=== PATIENT | male | born 1960 | race Caucasian/White ===

== ENCOUNTER 2022-01-25 20:08 | Inpatient (IN) | payer OTHER ==
[~2022-01-25] VITALS: Ht 180.3 cm; Wt 119.2 kg
[2022-01-25 20:26] LABS: BASOPHILS ABSOLUTE AUTO 0.09 K/mm3 (0.00-0.23); BASOPHILS PERCENT AUTO 1 % (0-2); EOSINOPHILS PERCENT AUTO 1 % (0-6); Hematocrit 48.2 % (37.0-53.0); Hemoglobin 15.9 g/dL (13.5-17.5); IMMATURE GRAN ABSOLUTE AUTO 0.08 K/mm3 (0.00-0.10); IMMATURE GRAN PERCENT AUTO 1 % (0-1); LYMPHOCYTES ABSOLUTE AUTO 1.84 K/mm3 (0.84-5.20); LYMPHOCYTES PERCENT AUTO 12 % (21-46); MONOCYTES ABSOLUTE AUTO 0.97 K/mm3 (0.16-1.47); MONOCYTES PERCENT AUTO 6 % (4-13); Mean Corpuscular HGB 29.7 pg (26.0-34.0); Mean Corpuscular Volume 90 fL (80-100); Mean Platelet Volume 9.9 fL (9.1-12.4); NEUTROPHILS ABSOLUTE AUTO 11.96 K/mm3 (1.96-9.15); NEUTROPHILS PERCENT AUTO 79 % (41-73); Platelet Count 227 K/mm3 (150-400); RDW Coefficient Variation 13.6 % (11.7-14.2); RDW Standard Deviation 45.2 fL (35.1-46.3); Red Blood Cell Count 5.35 M/mm3 (4.30-5.90); White Blood Cell Count 15.14 K/mm3 (4.00-11.30)
[2022-01-25 20:41] LABS: Base Excess Venous -1.6 mmol/L; Bicarbonate Venous 20.9 mmol/L (24.0-30.0); PCO2 Venous 70.3 mmHg (38-42); pH Blood Venous 7.19 (7.34-7.37)
[2022-01-25 20:48] LABS: Alanine Aminotransfer (ALT/SGP 40 U/L (12-78); Albumin, Blood 3.7 g/dL (3.4-5.0); Albumin/Globulin Ratio 0.8 (0.8-1.8); Alk Phos 116 U/L (50-136); Anion Gap 11 mmol/L (6-16); Aspartate Aminotrans (AST/SGOT 26 U/L (12-37); Bilirubin, Total 0.3 mg/dL (0.1-1.0); Blood Urea Nitrogen 25 mg/dL (8-24); Bun/Creatinine Ratio 25.3 (12.0-20.0); CO2, Blood 24 mmol/L (21-32); Calcium, Blood 9.2 mg/dL (8.5-10.1); Chloride, Blood 106 mmol/L (98-108); Creatinine, Blood 0.99 mg/dL (0.60-1.20); Ethanol (Alcohol), Blood, Med <3 mg/dL; Globulin, Blood 4.5 g/dL (2.2-4.0); Glomerular Filtration Rate 86 (60-); Glucose, Blood 129 mg/dL (70-99); Sodium, Blood 141 mmol/L (136-145); Total Protein, Blood 8.2 g/dL (6.4-8.2)
[2022-01-25 23:13] LABS: Base Excess Venous -0.6 mmol/L; PCO2 Venous 74.1 mmHg (38-42); pH Blood Venous 7.18 (7.34-7.37)
[2022-01-26 00:22] LABS: International Normalized Ratio 0.97; Prothrombin Time Results 10.2 Sec (9.7-11.5)
[2022-01-26 00:25] LABS: PCO2 Arterial 65.7 mmHg (35-45); PO2 Arterial 89.1 mmHg (80-100)
[2022-01-26 00:58] LABS: Source, Urine Foley catheter
[2022-01-26 01:03] LABS: Blood, Urine 4+ (Neg); Glucose Qualitative, Urine Neg (Neg); Ketones, Urine Neg (Neg); Leukocyte Esterase, Urine Neg (Neg); Nitrite, Urine Neg (Neg); Protein, Urine 1+ (Neg); Specific Gravity, Urine 1.025 (1.003-1.022); Urobilinogen, Urine NORM (Normal)
[2022-01-26 01:07] LABS: Bilirubin, Urine 2+ (Neg)
[2022-01-26 01:18] LABS: Appearance, Urine Clear (Clear); Color, Urine Yellow (P-Yellow); Hyaline Casts 0-2 /lpf (0-2); White Blood Cells, Urine 0-2 /hpf (0-5)
[2022-01-26 01:19] LABS: Bacteria Rare /hpf; Squamous Epithelial Cells Not Seen /hpf (Few)
[2022-01-26 01:22] LABS: U Amphetamine Screen Not Detected; U Barbituate Screen Not Detected; U Benzodiazapine Screen Not Detected; U Buprenorphine Screen DETECTED; U Cannabinoids Screen DETECTED; U Cocaine Screen Not Detected; U Methadone Screen Not Detected; U Methamphetamine Screen Not Detected; U Opiates Screen Not Detected; U Oxycodone Screen Not Detected; U Phencyclidine Screen Not Detected; U Propoxyphene Screen Not Detected
[2022-01-26 02:25] LABS: PCO2 Arterial 60.3 mmHg (35-45); PO2 Arterial 86.2 mmHg (80-100); pH Blood Arterial 7.24 (7.35-7.45)
[2022-01-26 04:34] LABS: BASOPHILS ABSOLUTE AUTO 0.04 K/mm3 (0.00-0.23); BASOPHILS PERCENT AUTO 0 % (0-2); EOSINOPHILS ABSOLUTE AUTO 0.12 K/mm3 (0.00-0.68); EOSINOPHILS PERCENT AUTO 1 % (0-6); Hematocrit 46.2 % (37.0-53.0); Hemoglobin 14.7 g/dL (13.5-17.5); IMMATURE GRAN ABSOLUTE AUTO 0.04 K/mm3 (0.00-0.10); IMMATURE GRAN PERCENT AUTO 0 % (0-1); LYMPHOCYTES ABSOLUTE AUTO 2.14 K/mm3 (0.84-5.20); LYMPHOCYTES PERCENT AUTO 17 % (21-46); MONOCYTES ABSOLUTE AUTO 0.83 K/mm3 (0.16-1.47); MONOCYTES PERCENT AUTO 6 % (4-13); Mean Corpuscular HGB 29.8 pg (26.0-34.0); Mean Corpuscular HGB Conc 31.8 g/dL (31.5-36.5); Mean Corpuscular Volume 94 fL (80-100); Mean Platelet Volume 10.3 fL (9.1-12.4); NEUTROPHILS ABSOLUTE AUTO 9.83 K/mm3 (1.96-9.15); NEUTROPHILS PERCENT AUTO 76 % (41-73); Platelet Count 213 K/mm3 (150-400); RDW Coefficient Variation 13.9 % (11.7-14.2); RDW Standard Deviation 47.7 fL (35.1-46.3); Red Blood Cell Count 4.94 M/mm3 (4.30-5.90)
[2022-01-26 05:01] LABS: Bun/Creatinine Ratio 24.5 (12.0-20.0); Calcium, Blood 8.7 mg/dL (8.5-10.1); Creatinine, Blood 1.02 mg/dL (0.60-1.20); Potassium, Blood 4.2 mmol/L (3.5-5.5)
[2022-01-26 05:15] LABS: PCO2 Arterial 60.5 mmHg (35-45); PO2 Arterial 71.8 mmHg (80-100); pH Blood Arterial 7.26 (7.35-7.45)
--- NOTE | 2022-01-26 05:35 | NUR ---
ADMIT NOTE PT ARRIVED TO PCU FROM ED VIA ED STRETCHER W/ RT DURING XFER AT APPROX MIDNIGHT. PT WAS SLID BY 5 STAFF FROM ED STRETCHER TO PCU BED. PT OBTUNDED, DOES NOT RESPOND TO VERBAL COMMANDS. MOANS, MOVES W/ PAIN (WINTERS INSERTION). SP02>90% ON BIPAP, 17/06, 25% FI02. RR 6-7, IRREGULAR W/ BIPAP MACHINE. TELE SHOWS NSR, HR MOSTLY 70'S. PT HAD NOT URINATED PER ER REPORT. CALL PLACED TO MD MCALLISTER. MD MCALLISTER W/ ORDERS FOR WINTERS. WINTERS PLACED AND DRAINED 800 MLS. URINE SENT TO LAB. PT ARRIVED TO PCU W/ 22G IN L HAND. TAYLOR POWERGLIDE PLACED BY PHARMACY OPERATIONS COORDINATOR. RT IN ROOM, MD MCALLISTER AND MD CAMPBELL IN ROOM TO ASSESS PT D/T AMS AND LOW RESPIRATIONS. ABG DONE X3 THIS SHIFT SHOWING SLIGHT IMPROVEMENT ON PH, WORSENING ABG 02. MD CAMPBELL W/ ORDERS TO REPEAT ABG IN 4 HRS (930 AM). CIWAS NEGATIVE. SEIZURE PRECAUTIONS IN PLACE. FLUIDS INFUSING PER EMAR. CALL LIGHT IN REACH.
[2022-01-26] MEDS ORDERED: TOPI100 PO (14:16)
--- NOTE | 2022-01-26 17:02 | NUR ---
SHIFT SUMMARY MENTATION HAS IMPROVED THIS AFTERNOON. PT MUCH MORE ALERT AND ANSWERING QUESTION APPROPRIATELY. BP STABLE. HR REMAINS NSR. PT BEEN ON BIPAP MOST OF SHIFT FIO2 25%. THIS EVENING PT ABLE TO TOLERATE A BREAK AND PLACED ON 3L NC. PT COUGHING UP THICK DARK BROWN SPUTUM. PT SHOWN HOW TO USE SUCTION YOUNKER. FREQUENT ORAL CARE PROVIDED. PT ABLE TO REPOSITION HIMSELF IN BED. WINTERS PATENT AND DRAINING CLEAR YELLOW URINE. PT COMPLAINED OF ODONNELL THIS SHIFT BUT DENIED A NEED FOR MEDICATION. CIWA OF 5 THIS EVENING. PT ABLE TO TOLERATE PO INTAKE. WILL CONTINUE TO MONITOR AND REPORT TO ONCOMING SILKE
[2022-01-26] MEDS ORDERED: TRAZ100 PO (21:58)
[2022-01-26] MEDS ORDERED: GABA400 PO (21:58)
[2022-01-26] MEDS ORDERED: ATOR40TA PO (21:59)
[2022-01-26] MEDS ORDERED: Hydroxyzine HCl50 MG (21:59)
[2022-01-26] MEDS ORDERED: FAMO40 PO (22:00)
[2022-01-26] MEDS ORDERED: Prozac40 MG PO (22:00)
[2022-01-26] MEDS ORDERED: AMLO5 PO (22:00)
[2022-01-26] MEDS ORDERED: OLAN10 PO (22:01)
[2022-01-26] MEDS ORDERED: HYDCHL50 PO (22:02)
[2022-01-26] MEDS ORDERED: ETOD400 PO (22:02)
[2022-01-26] MEDS ORDERED: ERGO400 PO (22:03)
[2022-01-26] MEDS ORDERED: VITAMIN D310 MC4 PO (22:03)
[2022-01-27 04:29] LABS: Hematocrit 41.4 % (37.0-53.0); Hemoglobin 13.3 g/dL (13.5-17.5); Mean Corpuscular HGB 29.8 pg (26.0-34.0); Mean Corpuscular HGB Conc 32.1 g/dL (31.5-36.5); Mean Corpuscular Volume 93 fL (80-100); Platelet Count 187 K/mm3 (150-400); RDW Coefficient Variation 13.7 % (11.7-14.2); Red Blood Cell Count 4.47 M/mm3 (4.30-5.90); White Blood Cell Count 11.24 K/mm3 (4.00-11.30)
[2022-01-27 04:44] LABS: Bun/Creatinine Ratio 24.5 (12.0-20.0); Calcium, Blood 8.5 mg/dL (8.5-10.1); Creatinine, Blood 0.9 mg/dL (0.60-1.20); Potassium, Blood 3.8 mmol/L (3.5-5.5)
--- NOTE | 2022-01-27 05:56 | NUR ---
SHIFT SUMMARY NO ACUTE CHANGES DURING NOC. SLEPT WITH BIPAP , FIO2 25%. PT IS ON 2L NC WHEN AWAKE. FREQUENT COUGH PRODUCTIVE OF THICK TANNISH-BROWN SPUTUM. DENIES SOB OR DYSPNEA. MEDICATED WITH TYLENOL 650MG PO X 2 DOSES FOR C/O HEADACHE AND LIBRIUM 50MG PO X 2 DOSES FOR CIWA 7-9. VSS T/O NOC. WINTERS PATENT AND DRAINING TO GRAVITY. TOLERATING PO DIET. PT IS ABLE TO REPOSITION SELF IN BED. WILL REPORT TO ONCOMING RN WHEN AVAILABLE.
--- NOTE | 2022-01-27 09:23 | NUR ---
Room assignment 356 was given; left message for the RN Marta to call for report when available.
--- NOTE | 2022-01-27 09:24 | NUR ---
The pt was c/o feeling difficulty catching his breath when he is coughing. He demonstrated to me how he feels like it is hard for him to move the air when he coughs. He does have some wheezing noted in the right lower lobe, and crackles in bases bilaterally. Provided the pt with an incentive spirometer, flutter valve and gave instructions on their use. The pt demonstrated correct and consistent use of these tools this morning, and he is expectorating plegm and using the yankaur to get it out of his mouth. He expressed thanks for the tools. Encouraged the pt to get up and move around the room, sitting in chair, walking to the bathroom as tolerated, etc. Kilgore catheter was removed this morning. pt states that he had a [facility] and since then he has had "erectile dysfunction". The pt was also weaned off of his oxygen this morning. SpO2 92% on Room air while at rest presently.
--- NOTE | 2022-01-27 10:04 | NUR ---
Telephone report given to SILKE Lozano.
--- NOTE | 2022-01-27 12:58 | NUR ---
TRANSFER NOTE PT WAS TANSFERRED TO THE FLOOR [facility]5. REPORT GOTTENE FROM [facility]. SECTION SET UP UPON [T REQUEST. VS STABLE. BED IN LOWEST POSITION AND CALL LIGHT IN REACH
--- NOTE | 2022-01-27 17:07 | NUR ---
SHIFT SUMMARY PT WAS BROUGHT TO THE FLOOR TODAY FROM . HIS WAS IN TODAY AND SHE TOOK THE PT OUTSIDE AND TO [facility]IGN TOLD BY 4 SEPARATE STAFF THAT THIS WAS NOT ALLOWED. SHE AND THE PT ALSO SEEM TO BE VERY LOUD AND SHOUT AT EACH OTHER. SPOKE WITH THE AND INFORMED HIM OF HIS PROGRESS. NO ACUTE CHANGES. BED IN LOWEST POSITION AND CALLL LIGHT WITHIN REACH
--- NOTE | 2022-01-28 03:51 | NUR ---
DIRECTOR OF PRIMARY CARE SUMMARY VOICED SOME DISCOMFORT AT HS AND WANTED PAIN MED. RECEIVED TYLENOL, BUT VOICED HE WANTED SOMETHING SRONGER. MD WAS NOTIFIED, MD SAID HE WOULD NEED TO DISCUSS THIS WITH AM MD. PT NOTIFIED AND AGREED. PLACED ON BIPAP PER RT. NOTE BRADYCARDIA - IN 40'S AT TIMES. O2 SATS REMAIN IN THE 90'S. CIWA AT HS 2. NO NOTED S/S WITHDRAWLS. SUCTIONS SELF. VOIDED QS (WINTERS WAS REMOVED PRVIOUS SHIFT). CALL LIGHT IN REACH. HAS BEEN RESTING WITHOUT NOTED DISTRESS. WILL CONTINUE TO MONITOR
[2022-01-28] MEDS ORDERED: ALBU2.5V5 INH (12:42)
[2022-01-28] MEDS ORDERED: PRED20 PO (12:48)
[2022-01-28] MEDS ORDERED: STIOLTO RESPIMAT4 G1 INH (12:50)
--- NOTE | 2022-01-28 13:35 | NUR ---
DISCHARGE PT DISCHARGED WITH AT 1340 BY WHEELCHAIR. ALL DISCHARGE PAPERWORK GONE OVER. POWERGLIDE REMOVED AND ALL MEDS DISCUSSED.
== END 2022-01-28 13:39 | disposition home or self-care (01) | DRG 91 ==
LOC: ER 20:08 → PCU 01-26 00:07 → MEDS 01-27 10:19
PROVIDERS: Emergency Medicine; Family Medicine; Internal Medicine; ADMIT Internal Medicine
PROC: 5A09357 Assistance with Respiratory Ventilation, Less than 24 Consecutive Hours, Continuous Positive Airway Pressure (ICD-10-PCS; principal; 2022-01-26)
PROC: HZ2ZZZZ Detoxification Services for Substance Abuse Treatment (ICD-10-PCS; 2022-01-26)
DX: G92.8 Other toxic encephalopathy (principal); J96.01 Acute respiratory failure with hypoxia; J96.02 Acute respiratory failure with hypercapnia; K92.0 Hematemesis; Z68.41 Body mass index [BMI] 40.0-44.9, adult; J44.1 Chronic obstructive pulmonary disease with (acute) exacerbation; E87.2 Acidosis; R04.0 Epistaxis; F10.10 Alcohol abuse, uncomplicated; E66.9 Obesity, unspecified; F12.10 Cannabis abuse, uncomplicated; Z88.0 Allergy status to penicillin; Z71.41 Alcohol abuse counseling and surveillance of alcoholic
CPT/HCPCS: 36415; 36600; 51703; 71045; 74150; 80048; 80053; 81001; 82140; 82803; 82947; 83605; 83735; 84145; 85025; 85027; 85610; 87040; 94640; 94644; 94660; 94664; 94760; 94762; 96374; 99285-25; A9270; C1751; C9113; G0480; J2405; J2930; J3411; J7030

== ENCOUNTER 2024-04-17 17:36 | Inpatient (IN) | payer OTHER ==
[~2024-04-17] VITALS: Ht 180.3 cm; Wt 140.6 kg
[~2024-04-17 17:36] MED LIST: ALBU2.5V5 INH; AMLO5 PO; ATOR40TA PO; ERGO400 PO; ETOD400 PO; FAMO40 PO; GABA400 PO; HYDCHL50 PO; Hydroxyzine HCl50 MG; OLAN10 PO; PRED20 PO; Prozac40 MG PO; STIOLTO RESPIMAT4 G1 INH; TOPI100 PO; TRAZ100 PO; VITAMIN D310 MC4 PO
[2024-04-17 18:02] LABS: BASOPHILS ABSOLUTE AUTO 0.07 K/mm3 (0.00-0.23); BASOPHILS PERCENT AUTO 1 % (0-2); EOSINOPHILS ABSOLUTE AUTO 0.38 K/mm3 (0.00-0.68); EOSINOPHILS PERCENT AUTO 4 % (0-6); Hematocrit 39.8 % (37.0-53.0); Hemoglobin 12.8 g/dL (13.5-17.5); IMMATURE GRAN ABSOLUTE AUTO 0.03 K/mm3 (0.00-0.10); IMMATURE GRAN PERCENT AUTO 0 % (0-1); LYMPHOCYTES ABSOLUTE AUTO 2.16 K/mm3 (0.84-5.20); LYMPHOCYTES PERCENT AUTO 24 % (21-46); MONOCYTES ABSOLUTE AUTO 0.54 K/mm3 (0.16-1.47); MONOCYTES PERCENT AUTO 6 % (4-13); Mean Corpuscular HGB 29.4 pg (26.0-34.0); Mean Corpuscular HGB Conc 32.2 g/dL (31.5-36.5); Mean Corpuscular Volume 92 fL (80-100); Mean Platelet Volume 9.7 fL (9.1-12.4); NEUTROPHILS ABSOLUTE AUTO 6.03 K/mm3 (1.96-9.15); NEUTROPHILS PERCENT AUTO 65 % (41-73); Platelet Count 256 K/mm3 (150-400); RDW Coefficient Variation 14.2 % (11.7-14.2); RDW Standard Deviation 47.9 fL (35.1-46.3); Red Blood Cell Count 4.35 M/mm3 (4.30-5.90); White Blood Cell Count 9.21 K/mm3 (4.00-11.30)
[2024-04-17 18:28] LABS: Albumin, Blood 3.1 g/dL (3.4-5.0); Albumin/Globulin Ratio 0.6 (0.8-1.8); Bilirubin, Total 0.3 mg/dL (0.1-1.0); Bun/Creatinine Ratio 17.4 (12.0-20.0); Calcium, Blood 9.4 mg/dL (8.5-10.1); Creatinine, Blood 1.49 mg/dL (0.60-1.20); Potassium, Blood 3.1 mmol/L (3.5-5.5); Total Protein, Blood 8.1 g/dL (6.4-8.2)
[2024-04-17] MEDS ORDERED: HYDROcodone 10-APAP 325 TAB PO ONE (19:35)
[2024-04-17 19:39] LABS: C-REACTIVE PROTEIN, EXT RANGE 5.35 mg/dL (0.000-0.300); Magnesium, Blood 2.1 mg/dL (1.6-2.4)
[2024-04-17] MEDS ORDERED: Vancomycin HCL 1,500 MG in NS 250 ML IV ONE (20:15)
[2024-04-17] MEDS ORDERED: Ondansetron HCl 2 MG / ML 2ML Vial IV PRN (21:25)
[2024-04-17] MEDS ORDERED: Albuterol 2.5 MG/3 ML VIAL INH PRN (21:30)
[2024-04-17] MEDS ORDERED: HydrALAZINE HCl 20 MG / ML 1ML Vial IV PRN (21:30)
[2024-04-17] MEDS ORDERED: Ipratropium/Albuterol SulF 2.5-0.5MG/3 ML Amp INH SCH (21:30)
[2024-04-17] MEDS ORDERED: Furosemide 10 MG/ML 4ML Vial IV SCH (22:00)
[2024-04-17] MEDS ORDERED: Potassium Chloride 20 MEQ TabCR PO ONE (22:00)
[2024-04-17] MEDS ORDERED: CeFAZolin Sodium 2,000 MG in NS 100 ML IV SCH (22:00)
[2024-04-17 22:30] VITALS: BP 169/93
[2024-04-17 22:37] LABS: U Amphetamine Screen DETECTED; U Barbituate Screen Not Detected; U Benzodiazapine Screen Not Detected; U Buprenorphine Screen Not Detected; U Cannabinoids Screen DETECTED; U Cocaine Screen Not Detected; U Methadone Screen Not Detected; U Methamphetamine Screen DETECTED; U Opiates Screen DETECTED; U Oxycodone Screen Not Detected; U Phencyclidine Screen Not Detected
[2024-04-17] MEDS ORDERED: NS 250 ML IV PRN (22:50)
[2024-04-17] MEDS ORDERED: HYDROcodone 5-APAP 325 TAB PO PRN (23:50)
[2024-04-18] MEDS ORDERED: OLANZapine ODT 10 MG Tab MM SCH ×2 (00:05→21:00)
--- NOTE | 2024-04-18 00:14 | NUR ---
PATIENT IS A NEW ADMIT FROM THE ED. AXOX 4 AND ONE ASSIST FROM GURNEY TO BED. IV ABX INFUSING FROM THE ED. ON ROOM AIR. DENIES CHEST PAIN, SOB, AND N/V. REPORTED LEFT RIB PAIN FROM HOME FALL. BLE CELLULITIS WITH CONSENT TO PHOTOGRAPH SIGNED, PICTURES TAKEN AND IN CHART. BLE CELLULITIS BORDERS MARKED IN THE ED. FOOD PROVIDE PER DIET ORDER. HOSPITALIST DONAVON CONNELL STARTED ZYPREXA 10 MG HOME DOSE NOW AND ADDED NORCO 5/325 MG Q4 PRN FOR PAIN MANAGEMENT. ORIENTED TO ROOM AND CALL LIGHT SYSTEM. PATIENT AWAKE AND RESTING AT THIS TIME. WCTM.
--- NOTE | 2024-04-18 04:18 | NUR ---
SHIFT SUMMARY PATIENT HAD NO ACUTE CHANGES. AXOX 4 AND SBA TO BR. USES URINAL INDEPENDENTLY. PIV INTACT. IV ABX INFUSED. DENIES CHEST PAIN, SOB, AND N/V. CELLULITIS BLE. METH, OPIATES, AND CANNIBUS +. REPORTS DRINKS SIX BEERS DAILY. LIVES WITH SPOUSE AND NOW SPOUSE DAUGHTER AND TWO CHILDREN MOVED IN PLUS HER . CEDS REFUSED NICOTINE PATCH. SLEPT MOST OF THE SHIFT. CALL LIGHT IN REACH. BED IN LOWEST POSITION. WILL CONTINUE TO MONITOR UNTIL DAY SHIFT NURSE ASSUMES CARE.
[2024-04-18 04:36] VITALS: BP 151/84
[2024-04-18 05:43] LABS: BASOPHILS ABSOLUTE AUTO 0.03 K/mm3 (0.00-0.23); BASOPHILS PERCENT AUTO 0 % (0-2); EOSINOPHILS ABSOLUTE AUTO 0.34 K/mm3 (0.00-0.68); EOSINOPHILS PERCENT AUTO 4 % (0-6); Hematocrit 37.9 % (37.0-53.0); Hemoglobin 12.3 g/dL (13.5-17.5); IMMATURE GRAN ABSOLUTE AUTO 0.02 K/mm3 (0.00-0.10); IMMATURE GRAN PERCENT AUTO 0 % (0-1); LYMPHOCYTES ABSOLUTE AUTO 1.46 K/mm3 (0.84-5.20); LYMPHOCYTES PERCENT AUTO 18 % (21-46); MONOCYTES PERCENT AUTO 7 % (4-13); Mean Corpuscular HGB 29.3 pg (26.0-34.0); Mean Corpuscular HGB Conc 32.5 g/dL (31.5-36.5); Mean Corpuscular Volume 90 fL (80-100); Mean Platelet Volume 9.8 fL (9.1-12.4); NEUTROPHILS ABSOLUTE AUTO 5.68 K/mm3 (1.96-9.15); NEUTROPHILS PERCENT AUTO 70 % (41-73); Platelet Count 262 K/mm3 (150-400); RDW Coefficient Variation 14.3 % (11.7-14.2); White Blood Cell Count 8.13 K/mm3 (4.00-11.30)
[2024-04-18 06:08] LABS: Bun/Creatinine Ratio 20.8 (12.0-20.0); Calcium, Blood 9.2 mg/dL (8.5-10.1); Creatinine, Blood 1.49 mg/dL (0.60-1.20); Magnesium, Blood 2.1 mg/dL (1.6-2.4); Potassium, Blood 3.3 mmol/L (3.5-5.5)
[2024-04-18] MEDS ORDERED: Potassium Chloride 10 Meq Tablet SA PO ONE (07:10)
[2024-04-18] MEDS ORDERED: PredniSONE 20 MG Tab PO SCH (07:35)
[2024-04-18 07:42] VITALS: BP 147/81
[2024-04-18] MEDS ORDERED: Gabapentin 400 MG Cap PO SCH (09:00)
[2024-04-18] MEDS ORDERED: Vancomycin HCL 1,250 MG in NS 250 ML IV SCH (09:00)
[2024-04-18] MEDS ORDERED: Topiramate 100 MG Tab PO SCH (09:00)
[2024-04-18] MEDS ORDERED: Thiamine HCl 100 MG Tab PO SCH (09:00)
[2024-04-18] MEDS ORDERED: Famotidine 20 MG Tab PO SCH (09:00)
[2024-04-18] MEDS ORDERED: Cholecalciferol 400 unit Tab PO SCH (09:00)
[2024-04-18] MEDS ORDERED: Folic Acid 1 MG TAB PO SCH (09:00)
[2024-04-18] MEDS ORDERED: Lactobacil 2-S.Thermo-Bifido 1 1 Cap PO SCH (09:00)
[2024-04-18] MEDS ORDERED: FLUoxetine HCL 20 MG CAP PO SCH (09:00)
[2024-04-18] MEDS ORDERED: Heparin Sodium,Porcine 5,000 UNIT/0.5 ML SDV SC SCH (09:00)
[2024-04-18] MEDS ORDERED: AmLODIPine Besylate 5 MG Tab PO SCH (09:00)
[2024-04-18] MEDS ORDERED: Multivitamins 1 Tab PO SCH (09:00)
[2024-04-18 13:56] LABS: Source, Urine Clean Catch
[2024-04-18 14:11] LABS: Appearance, Urine Clear (Clear); Bilirubin, Urine Neg (Neg); Blood, Urine Neg (Neg); Color, Urine Yellow (P-Yellow); Glucose Qualitative, Urine Neg (Neg); Ketones, Urine Neg (Neg); Leukocyte Esterase, Urine 2+ (Neg); Nitrite, Urine Neg (Neg); Protein, Urine 2+ (Neg); Urobilinogen, Urine NORM (Normal)
[2024-04-18 14:21] LABS: Bacteria Mod /hpf; Red Blood Cells, Urine 0-2 /hpf (0-2); Squamous Epithelial Cells Rare /hpf (Few)
[2024-04-18 17:02] VITALS: BP 138/79
--- NOTE | 2024-04-18 18:11 | NUR ---
SHIFT SUMMARY PATIENT A/OX4, MUMBLED SPEECH AND SLOW TO RESPOND AT TIME. HAS BEEN SLEEPING MAJORITY OF THE SHIFT AND STATES HE DID NOT "GET MUCH SLEEP LASTNIGHT". CIWA SCORE OF 5 THIS SHIFT. IV ABX INFUSED PER AUG. ECHOCARDIOGRAM PENDING RESULTS. CHEST X RAY OBTAINED. ABDOMINAL ULTRASOUND SHOWED POST VOID RESIDUAL >100ML AND NEW ORDERS RECIEVED TO BLADDER SCAN POST VOID AND STRAIGHT CATH Q8PRN IF MORE THAN 250ML RETAINED. K+ REPLACED ORALY THIS AM. CONTINUOUS PULSE OX APPLIED BY RESPIRATORY THERAPY AND CPAP AT BEDSIDE, PATIENT SPO2 WNL ON ROOM AIR WHEN AWAKE, BUT DID DESAT TO 86% WHEN ASLEEP AND CPAP WAS NOT IN PLACE. PATIENT COMPLAINING OF RIGHT LEG PAIN, WHICH IS CHRONIC. UA OBTAINED, CULTURE PENDING. PATIENT PARTICIPATED IN PHYSICAL THERAPY THIS AFTERNOON. NO OTHER CONCERNS AT THIS TIME.
[2024-04-18 20:16] VITALS: BP 127/63
[2024-04-18] MEDS ORDERED: Atorvastatin 40 MG Tab PO SCH (21:00)
[2024-04-18] MEDS ORDERED: TraZODone HCl 100 MG Tab PO SCH (21:00)
[2024-04-19 02:30] VITALS: BP 127/75
--- NOTE | 2024-04-19 05:57 | NUR ---
ADMITTED 04.18.24 LLE CELLLULITIS. AAAOX4, LETHARGIC. SBA WITH WALKER, X1 ASSIST. CPAP @ HS WITH 4L O2, CONT. PULSE OX. POST VOID BLADDER SCAN, IF > 250ML STRAIGHT CATH. BLE SCABS, REDNESS AND WARMTH. UA PENDING. NORCO 14. VANCO AND ANCEF GIVEN.
[2024-04-19 07:35] VITALS: BP 143/81
[2024-04-19] MEDS ORDERED: Potassium Chloride 20 MEQ TabCR PO ONE (08:00)
--- NOTE | 2024-04-19 09:20 | NUR ---
CRITICAL VANCOMYCIN TROUGH 23.9 REPORTED FROM LAB THIS AM. AT BEDSIDE INFORMED. NO ORDERS AT THIS TIME. 0900 DOSE OF VANC HELD PER AUG.
[2024-04-19 09:21] LABS: Vancomycin, Trough 23.9 ug/mL (5.0-10.0)
[2024-04-19 09:24] LABS: Albumin, Blood 2.9 g/dL (3.4-5.0); Albumin/Globulin Ratio 0.6 (0.8-1.8); Bilirubin, Total 0.2 mg/dL (0.1-1.0); Bun/Creatinine Ratio 19.3 (12.0-20.0); Calcium, Blood 9.4 mg/dL (8.5-10.1); Creatinine, Blood 1.35 mg/dL (0.60-1.20); Globulin, Blood 4.8 g/dL (2.2-4.0); Magnesium, Blood 2.1 mg/dL (1.6-2.4); Total Protein, Blood 7.7 g/dL (6.4-8.2)
[2024-04-19 09:59] LABS: BASOPHILS ABSOLUTE AUTO 0.04 K/mm3 (0.00-0.23); BASOPHILS PERCENT AUTO 1 % (0-2); IMMATURE GRAN ABSOLUTE AUTO 0.02 K/mm3 (0.00-0.10); IMMATURE GRAN PERCENT AUTO 0 % (0-1); MONOCYTES ABSOLUTE AUTO 0.38 K/mm3 (0.16-1.47)
[2024-04-19 10:10] LABS: EOSINOPHILS ABSOLUTE AUTO 0.26 K/mm3 (0.00-0.68); EOSINOPHILS PERCENT AUTO 4 % (0-6); Hematocrit 37.4 % (37.0-53.0); Hemoglobin 12.1 g/dL (13.5-17.5); LYMPHOCYTES ABSOLUTE AUTO 1.47 K/mm3 (0.84-5.20); LYMPHOCYTES PERCENT AUTO 20 % (21-46); MONOCYTES PERCENT AUTO 5 % (4-13); Mean Corpuscular HGB 29.1 pg (26.0-34.0); Mean Corpuscular HGB Conc 32.4 g/dL (31.5-36.5); Mean Corpuscular Volume 90 fL (80-100); NEUTROPHILS ABSOLUTE AUTO 5.28 K/mm3 (1.96-9.15); NEUTROPHILS PERCENT AUTO 71 % (41-73); Platelet Count 249 K/mm3 (150-400); RDW Coefficient Variation 14.4 % (11.7-14.2); RDW Standard Deviation 47.8 fL (35.1-46.3); Red Blood Cell Count 4.16 M/mm3 (4.30-5.90); White Blood Cell Count 7.45 K/mm3 (4.00-11.30)
[2024-04-19 14:58] VITALS: BP 107/59
[2024-04-19] MEDS ORDERED: Vancomycin HCL 2,000 MG in NS 500 ML IV SCH (16:00)
--- NOTE | 2024-04-19 17:30 | NUR ---
SHIFT SUMMARY PATIENT A/OX4, ABLE TO MAKE NEEDS KNOWN. CIWA SCORE OF 4 THIS AM. NORCO ADMINISTERED FOR PAIN R/T CELLULITIS TO BILATERAL LOWER LEGS AND RIB FRACTURE D/T RECENT FALL AT HOME. PARTICIPATED IN PT THIS AFTERNOON. POST VOID BLADDER SCANS CONTINUE TO BE WELL BELOW 250ML. PATIENT VOIDING APPROPRIATELY, UA CULTURES PENDING WITH NO GROWTH TO DATE. WOUND CARE ORDERS REQUESTED FROM DR. GOODSON, AND DRESSINGS PLACED TO BILATERAL LOWER LEGS FOR SEROSANGUINOUS DRAINAGE. CONTINUOUS PULSE OX IN PLACE, SPO2 WNL ON ROOM AIR WHEN AWAKE. DOES DESAT WHEN SLEEPING, CPAP AT BEDSIDE. NEW PIV PLACED TO RIGHT HAND AND PIV TO LEFT FA REMOVED DUE TO INFILTRATION. NO OTHER CONCERNS AT THIS TIME.
[2024-04-19 19:55] VITALS: BP 128/63
[2024-04-20 04:05] VITALS: BP 144/73
--- NOTE | 2024-04-20 05:17 | NUR ---
PT ADMITTED 04/18/24 FOR LLE CELLULITIS. AAOX4. X1 SBA WITH WALKER. CPAP @ HS, AND CONTINUOUS PULS OX. BLADDER SCAN POST VOID, IF > 250ML THEN STRAIGHT CATH. PT DECLINES TO GET STRAIGHT CATH AND JESÚS HE HAS BEEN <250ML. BLE EDGES MARKED WITH MARKER, SCABS AND RED L>R. URINE CULTURES PENDING. NORCO FOR PAIN.
[2024-04-20 06:16] LABS: BASOPHILS ABSOLUTE AUTO 0.04 K/mm3 (0.00-0.23); BASOPHILS PERCENT AUTO 1 % (0-2); EOSINOPHILS ABSOLUTE AUTO 0.36 K/mm3 (0.00-0.68); EOSINOPHILS PERCENT AUTO 5 % (0-6); Hematocrit 37.4 % (37.0-53.0); Hemoglobin 11.6 g/dL (13.5-17.5); IMMATURE GRAN ABSOLUTE AUTO 0.02 K/mm3 (0.00-0.10); IMMATURE GRAN PERCENT AUTO 0 % (0-1); LYMPHOCYTES ABSOLUTE AUTO 2.16 K/mm3 (0.84-5.20); LYMPHOCYTES PERCENT AUTO 27 % (21-46); MONOCYTES ABSOLUTE AUTO 0.69 K/mm3 (0.16-1.47); MONOCYTES PERCENT AUTO 9 % (4-13); Mean Corpuscular HGB 28.9 pg (26.0-34.0); Mean Corpuscular Volume 93 fL (80-100); Mean Platelet Volume 9.9 fL (9.1-12.4); NEUTROPHILS ABSOLUTE AUTO 4.72 K/mm3 (1.96-9.15); NEUTROPHILS PERCENT AUTO 59 % (41-73); Platelet Count 258 K/mm3 (150-400); RDW Coefficient Variation 14.5 % (11.7-14.2); RDW Standard Deviation 49.9 fL (35.1-46.3); Red Blood Cell Count 4.01 M/mm3 (4.30-5.90); White Blood Cell Count 7.99 K/mm3 (4.00-11.30)
[2024-04-20 06:45] LABS: Albumin, Blood 2.7 g/dL (3.4-5.0); Albumin/Globulin Ratio 0.6 (0.8-1.8); Bilirubin, Total 0.2 mg/dL (0.1-1.0); Bun/Creatinine Ratio 18.7 (12.0-20.0); Calcium, Blood 9.3 mg/dL (8.5-10.1); Creatinine, Blood 1.39 mg/dL (0.60-1.20); Globulin, Blood 4.4 g/dL (2.2-4.0); Potassium, Blood 3.8 mmol/L (3.5-5.5); Total Protein, Blood 7.1 g/dL (6.4-8.2)
[2024-04-20 07:40] VITALS: BP 134/75
[2024-04-20] MEDS ORDERED: VISBIOME 112.51 EACH PO (13:52)
[2024-04-20] MEDS ORDERED: SULTRIDS PO (13:53)
[2024-04-20] MEDS ORDERED: AMOCLA875 PO (13:53)
[2024-04-20] MEDS ORDERED: MIRALAX17 GM PO (13:54)
--- NOTE | 2024-04-20 15:05 | NUR ---
PATIENT DISCHARGED AT 1500. CAME TO PICK HIM UP. DISCHARGE ORDERS GONE OVER WITH BOTH THE PATIENT AND HIS . IV PULLED. PUSHED OUT IN A WHEELCHAIR
== END 2024-04-20 15:02 | disposition home or self-care (01) | DRG 603 ==
LOC: ER 17:36 → MEDS 17:37
PROVIDERS: Emergency Medicine; Family Medicine; Nurse Practitioner Acute Care; Student in an Organized Health Care Education/Training Program; ADMIT Family Medicine
DX: L03.116 Cellulitis of left lower limb (principal); N17.9 Acute kidney failure, unspecified; J44.9 Chronic obstructive pulmonary disease, unspecified; K21.9 Gastro-esophageal reflux disease without esophagitis; F15.10 Other stimulant abuse, uncomplicated; F11.10 Opioid abuse, uncomplicated; L98.429 Non-pressure chronic ulcer of back with unspecified severity; I11.0 Hypertensive heart disease with heart failure; I50.9 Heart failure, unspecified; F12.10 Cannabis abuse, uncomplicated; E87.6 Hypokalemia; G47.33 Obstructive sleep apnea (adult) (pediatric); E78.00 Pure hypercholesterolemia, unspecified; F17.210 Nicotine dependence, cigarettes, uncomplicated; F43.12 Post-traumatic stress disorder, chronic; Z87.81 Personal history of (healed) traumatic fracture; Z91.81 History of falling; F31.9 Bipolar disorder, unspecified; Z88.0 Allergy status to penicillin; Z79.899 Other long term (current) drug therapy
CPT/HCPCS: 36415; 71046; 76770; 80048; 80053; 80202; 81001; 83735; 83880; 85025; 86140; 87086; 93306; 93971; 94640; 94660; 94664; 94760; 94762; 96365-59; 96366; 96367; 96372; 96375; 97110; 97116; 97161; 97530; 99285-25; A9270; G0378; J0690; J1644; J1940; J3370; J7040; J7050

== ENCOUNTER 2024-06-28 17:57 | Emergency (ER) | payer OTHER ==
[~2024-06-28] VITALS: Ht 180.3 cm; Wt 142.9 kg
[~2024-06-28 17:57] MED LIST changes: +AMOCLA875 PO; +MIRALAX17 GM PO; +SULTRIDS PO; +VISBIOME 112.51 EACH PO
[2024-06-28 20:57] LABS: BASOPHILS ABSOLUTE AUTO 0.05 K/mm3 (0.00-0.23); BASOPHILS PERCENT AUTO 1 % (0-2); EOSINOPHILS ABSOLUTE AUTO 0.28 K/mm3 (0.00-0.68); EOSINOPHILS PERCENT AUTO 3 % (0-6); Hematocrit 40.8 % (37.0-53.0); Hemoglobin 13.3 g/dL (13.5-17.5); IMMATURE GRAN ABSOLUTE AUTO 0.01 K/mm3 (0.00-0.10); IMMATURE GRAN PERCENT AUTO 0 % (0-1); LYMPHOCYTES ABSOLUTE AUTO 2.25 K/mm3 (0.84-5.20); LYMPHOCYTES PERCENT AUTO 26 % (21-46); MONOCYTES ABSOLUTE AUTO 0.56 K/mm3 (0.16-1.47); MONOCYTES PERCENT AUTO 7 % (4-13); Mean Corpuscular HGB 29.5 pg (26.0-34.0); Mean Corpuscular HGB Conc 32.6 g/dL (31.5-36.5); Mean Corpuscular Volume 91 fL (80-100); NEUTROPHILS PERCENT AUTO 64 % (41-73); Platelet Count 195 K/mm3 (150-400); RDW Coefficient Variation 15.2 % (11.7-14.2); RDW Standard Deviation 49.9 fL (35.1-46.3); Red Blood Cell Count 4.51 M/mm3 (4.30-5.90); White Blood Cell Count 8.65 K/mm3 (4.00-11.30)
[2024-06-28 21:15] LABS: Alanine Aminotransfer (ALT/SGP 24 U/L (12-78); Albumin, Blood 3.4 g/dL (3.4-5.0); Albumin/Globulin Ratio 0.8 (0.8-1.8); Alk Phos 118 U/L (50-136); Anion Gap 9 mmol/L (3-11); Aspartate Aminotrans (AST/SGOT 27 U/L (12-37); Bilirubin, Total 0.5 mg/dL (0.1-1.0); Blood Urea Nitrogen 13 mg/dL (8-24); Bun/Creatinine Ratio 10.2 (12.0-20.0); CO2, Blood 20 mmol/L (21-32); Calcium, Blood 9.2 mg/dL (8.5-10.1); Chloride, Blood 114 mmol/L (98-108); Creatinine, Blood 1.28 mg/dL (0.60-1.20); Ethanol (Alcohol), Blood, Med <3 mg/dL; Globulin, Blood 4.2 g/dL (2.2-4.0); Glomerular Filtration Rate 62 (60-); Glucose, Blood 85 mg/dL (70-99); Magnesium, Blood 2.3 mg/dL (1.6-2.4); Potassium, Blood 4.1 mmol/L (3.5-5.5); Sodium, Blood 139 mmol/L (136-145); Total Protein, Blood 7.6 g/dL (6.4-8.2)
[2024-06-28 23:34] LABS: CORONAVIRUS COVID-19 AG Negative (NEGATIVE); INFLUENZA A AG Negative (NEGATIVE); INFLUENZA B AG Negative (NEGATIVE)
[2024-06-29] MEDS ORDERED: FAMO20 PO (01:04)
[2024-06-29] MEDS ORDERED: ALMACONE SUSPE355 ML PO (01:04)
[2024-06-29] MEDS ORDERED: Famotidine 10 MG/ML 2ML Vial IV ONE (01:05)
[2024-06-29] MEDS ORDERED: Mag Hydrox/AL Hydrox/Simeth 30 ML UDC PO ONE (01:05)
[2024-06-29 02:00] VITALS: BP 134/76
== END 2024-06-29 01:58 | disposition home or self-care (01) ==
LOC: ER 17:57
PROVIDERS: Student in an Organized Health Care Education/Training Program
DX: K21.9 Gastro-esophageal reflux disease without esophagitis (principal); F15.10 Other stimulant abuse, uncomplicated; F10.90 Alcohol use, unspecified, uncomplicated; F17.200 Nicotine dependence, unspecified, uncomplicated; I11.0 Hypertensive heart disease with heart failure; I50.9 Heart failure, unspecified; F43.10 Post-traumatic stress disorder, unspecified; J44.9 Chronic obstructive pulmonary disease, unspecified; E78.00 Pure hypercholesterolemia, unspecified; Z79.899 Other long term (current) drug therapy; Z88.0 Allergy status to penicillin
CPT/HCPCS: 71046; 80053; 80320; 83735; 83880; 84484; 85025; 87428-QW; 93005; 93010; 96374; 99285-25; A9270

== ENCOUNTER 2024-10-08 19:24 | Observation (INO) | payer OTHER ==
[~2024-10-08] VITALS: Ht 180.3 cm; Wt 140.2 kg
[~2024-10-08 19:24] MED LIST changes: +ALMACONE SUSPE355 ML PO; -ERGO400 PO; +FAMO20 PO; +THERA-D2000 UNIT PO
[2024-10-08] MEDS ORDERED: TADALAFIL20 M1 PO (21:37)
[2024-10-08] MEDS ORDERED: HYDR1TAB94 PO (21:37)
[2024-10-08] MEDS ORDERED: MULTI-VITAMIN1 EAC2 PO (21:38)
[2024-10-08] MEDS ORDERED: Aspir 8181 MG PO (21:39)
[2024-10-09] MEDS ORDERED: OLANZapine 10 MG Tab PO SCH (01:30)
[2024-10-09] MEDS ORDERED: HYDROcodone 5-APAP 325 TAB PO PRN (01:30)
[2024-10-09] MEDS ORDERED: FLUoxetine HCL 20 MG CAP PO SCH (09:00)
[2024-10-09] MEDS ORDERED: HydroCHLOROthiazide 25 mg Tab PO SCH (09:00)
[2024-10-09] MEDS ORDERED: AmLODIPine Besylate 5 MG Tab PO SCH (09:00)
[2024-10-09] MEDS ORDERED: Aspirin 81 MG Chew PO SCH (09:00)
[2024-10-09] MEDS ORDERED: Cholecalciferol 1000 Unit Tablet (=25MCG) PO SCH (09:00)
[2024-10-09] MEDS ORDERED: Famotidine 20 MG Tab PO SCH (09:00)
[2024-10-09] MEDS ORDERED: Topiramate 100 MG Tab PO SCH (09:00)
[2024-10-09 09:17] VITALS: BP 170/99
[2024-10-09] MEDS ORDERED: Atorvastatin 40 MG Tab PO SCH (21:00)
== END 2024-10-09 15:06 | disposition home or self-care (01) ==
LOC: ER 19:24 → EOR 19:25
PROVIDERS: ADMIT Emergency Medicine
DX: R45.850 Homicidal ideations (principal); K21.9 Gastro-esophageal reflux disease without esophagitis; E78.00 Pure hypercholesterolemia, unspecified; F43.10 Post-traumatic stress disorder, unspecified; F31.9 Bipolar disorder, unspecified; I11.0 Hypertensive heart disease with heart failure; I50.9 Heart failure, unspecified; J44.9 Chronic obstructive pulmonary disease, unspecified; F17.210 Nicotine dependence, cigarettes, uncomplicated; Z88.0 Allergy status to penicillin; Z91.040 Latex allergy status; Z79.899 Other long term (current) drug therapy
CPT/HCPCS: 99285; A9270; G0378